=== PATIENT | male | born 1945 | race Caucasian/White ===

== ENCOUNTER → 2020-10-31 09:26 | Outpatient (CLI) | payer MEDICARE, MEDICAID, SELFPAY ==
[2020-10-31 09:50] LABS: Basophils # 0.1 K/mm3 (0-0.2); Basophils % 0.7 % (0.1-2.0); Eosinophils # 1.1 K/mm3 (0.0-0.4); Eosinophils % 10.4 % (0.1-12.0); Hematocrit 41.5 % (42.0-52.0); Hemoglobin 13.1 g/dL (14.1-18.0); Lymphocytes # 1.8 K/mm3 (0.7-4.5); Lymphocytes % 18.1 % (10-50); Mean Corpuscular HGB Conc 31.6 g/dL (31.8-35.4); Mean Corpuscular Hemoglobin 25.7 pg (27.0-31.2); Mean Corpuscular Volume 81.4 fl (80-94); Mean Platelet Volume 7.3 fl (7.4-10.4); Monocytes # 0.6 K/mm3 (0.1-1.0); Monocytes % 5.9 % (1.7-9.3); Neutrophils # 6.6 K/mm3 (1.8-7.8); Platelet Count 289 K/mm3 (142-424); Red Cell Distribution Width 16.3 % (11.5-17.5); White Blood Count 10.2 K/mm3 (4.8-10.8)
[2020-10-31 10:26] LABS: Chloride 101 mmol/L (98-107); Potassium 4.7 mmoL/L (3.5-5.1); Sodium 142 mmol/L (136-145)
[2020-10-31 10:29] LABS: Anion Gap 12.7 mEq/L (5-15); Blood Urea Nitrogen 10 mg/dl (9-20); Calcium 9.7 mg/dl (8.4-10.2); Carbon Dioxide 33 mmol/L (22.0-30.0); Estimated Glomerular Filt Rate 94 ml/min (>60); GFR (African American) 114 ML/MIN (>60); Glucose 107 mg/dl (74-100)
== END ==
PROVIDERS: Visit Provider Urology
DX: I20.9 Angina pectoris, unspecified (principal); R94.30 Abnormal result of cardiovascular function study, unspecified; Z01.818 Encounter for other preprocedural examination; Z11.52 Encounter for screening for COVID-19
CPT/HCPCS: 36415; 80048; 85025; U0003

== ENCOUNTER 2020-11-01 08:13 | Day surgery (SDC) | payer MEDICARE, MEDICAID, SELFPAY ==
[2020-11-01] VITALS (14 sets, daily range): BP systolic 116–194; BP diastolic 56–90; PULSE 63–86; RESP 16–18; TEMP 36.8; O2SAT 86–97; BMI 49.2
--- NOTE | 2020-11-01 | IR_ITS ---
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 COMPLICATIONS NONE Estimated Blood Loss: LESS THAN 10 ML TECHNIQUE One percent lidocaine was used to anesthetize the right groin. The right femoral artery was accessed via the Seldinger technique. A 5-[place] Island[place] sheath was placed in the right femoral artery. The JL-4 and JR-4 catheter was also used to perform left heart catheterization left ventriculogram and selective coronary angiogram. A JR4 catheter was used to selectively intubate the saphenous vein graft to the circumflex artery. At the end of the procedure the patient was transferred to the post-op holding area in stable condition for arterial sheath removal. ANGIOGRAPHIC RESULTS The left main artery Has a stent in the ostial and proximal segment which is widely patent free of in-stent restenosis with excellent distal transitioning. The left anterior descending artery Has a smooth ostial 20% stenosis with wide patency throughout the proximal and mid segment. The circumflex artery Is large and dominant. The first obtuse marginal artery has a proximal 80% stenosis and then proximally occluded. The remaining circumflex artery is widely patent and gives rise to a small distal obtuse marginal artery network The right coronary artery Small nondominant and patent The WATSON ventriculogram reveals Normal 65% The left ventricular end-diastolic pressure 15 mmHg Saphenous vein graft to the first obtuse marginal arteries widely patent IMPRESSION Widely patent coronaries as described above Normal ejection fraction PLAN 1. Continue medical management 2. Treatment of diastolic dysfunction Electronically signed by : Marc Montero, 11/01/2020 11:59:33
--- NOTE | 2020-11-01 | IR_ITS ---
? PROCEDURES Left heart catheterization Left?ventriculogram Selective coronary angiogram Catheter placed in left?subclavian artery Left?subclavian artery angiogram with nonselective engagement of the left internal mammary artery with angiography ? INDICATION Abnormal stress test, Angina pectoris, Aortic stenosis, Preoperative evaluation for impending bypass surgery ? Informed consent was obtained prior to the procedure. ? COMPLICATIONS NONE ? Estimated Blood Loss: LESS THAN 10 ML ? TECHNIQUE One percent?lidocaine used to anesthetize the right anterior aspect of the wrist. The right radial artery was accessed via the?Seldinger technique. A 6 Urdu sheath was placed in the right radial artery. 2.5 mg of verapamil, 800 mcg of nitroglycerin,?1mg?Lidocaine and 5000 U Heparin were given through the arterial sheath. The trap catheter was also used to perform left heart catheterization, left?ventriculogram and selective coronary angiogram. The same catheter was placed in the left?subclavian artery and angiography was performed in anticipation of possible bypass surgery. At the end of the procedure the sheath was removed good?hemostasis was achieved using?Traclet band, patient was transferred to the?postop holding area in stable condition. ? ANGIOGRAPHIC RESULTS The left main artery Normal The left anterior descending artery Has a proximal eccentric 50%?stenosis with mid vessel 10 to 20% stenoses The circumflex artery Is?nondominant and has a stent in the proximal segment which is widely patent free of in-stent?restenosis with excellent proximal distal transitioning. There are additional mid vessel 30% first obtuse marginal artery stenoses The right coronary artery Is a dominant vessel and has diffuse vascular?ectasia throughout its entire course. Proximally there are 30 and 40%?stenoses with mid vessel 30 to 40% stenoses. The?WATSON?ventriculogram reveals Preserved at 60% The left ventricular end-diastolic pressure 20 mmHg A 60 mm?transaortic valve peak to peak gradient is identified The left?subclavian artery is widely patent with a widely patent left internal mammary artery ? IMPRESSION Moderate proximal LAD disease as described above 60 mm?transaortic valve gradient suggestive of severe aortic stenosis Patent left?subclavian artery and left internal mammary artery ? PLAN 1. Recommend JARRED to better evaluate the aortic valve and to assess for aortic regurgitation 2. Surgical evaluation to consider either?TAVR for the aortic valve or possible open repair with possible ODONNELL graft into the LAD 3. Referral to [facility] 4. Risk factor modification ? Electronically signed by :?GARY 11/02/2020 13:17:27 GLORIA
--- NOTE | 2020-11-01 12:48 | CA_ITS ---
APPROVED REPORT EXAM: Comprehensive 2D, Doppler, and color-flow Echocardiogram [employer]: Rach Vega CRT Ht: 5 ft 3 in Wt: 278lbs BSA: 2.22 BP: 179/76 mmHg Indications: murmur, cp Procedure After obtaining informed consent, patient underwent transesophageal echo in the [facility]. Type of Sedation : Conscious Sedation Sedation was administered by Poncho Segovia C.R.N.A. Transesophageal probe was inserted and advanced into esophagus without difficulty by Dr. Rahul Campuzano. The JARRED was performed without complications. Throughout the procedure, the blood pressure, pulse oximetry, cardiac rhythm, and rate were monitored. The patient tolerated the procedure without adverse effects. Recovery from conscious sedation was uneventful and vital signs were stable. Left Ventricle Left ventricle is mildly dilated, preserved left ventricular systolic function, visually estimated ejection fraction 55% with no regional wall motion abnormality. Right Ventricle Right ventricle is mildly enlarged with normal contractility. Atria Left atrium is mildly enlarged. There is no thrombus in her left atrial appendage. Right atrium is mildly enlarged. Intra-atrial septum is intact, there is no flow across the interatrial septum, agitated saline contrast study fails to identify intracardiac shunt. Aortic Valve Aortic valve is thickened and calcified, the valve area by planimetry is 1.6 cm???, there is severe aortic insufficiency. Mitral Valve Mitral valve is minimally thickened, there is mild mitral regurgitation. Tricuspid Valve Tricuspid valve grossly normal, there is mild tricuspid regurgitation. Pulmonic Valve Pulmonic valve is grossly normal. Great Vessels Aortic root is normal size. Pericardium No significant pericardial effusion noted. Conclusion 1. Mild biatrial enlargement, mildly dilated left ventricle with preserved left ventricular systolic function, visually estimated ejection fraction 55% with no regional wall motion abnormality. 2. Abnormal aortic valve with mild aortic stenosis there is severe aortic insufficiency. 3. Mild mitral and tricuspid regurgitation. 4. Agitated saline contrast study fails to identify intracardiac shunt. 5. No significant pericardial effusion noted. Electronically signed by : Ariel Greene, 11/01/2020 16:00:21
--- NOTE | 2020-11-02 10:59 | HMH.ANESCL ---
[facility] Anesthesia Checklist - Structural Data Admitted From: Home Planned Operative Procedure/s: angella Consent for Planned Operative Procedure(s) Verified: Yes - Airway Assessment C-Spine Mobility Assessed: Yes TMJ Mobility Assessed: Yes Dentition: Edentulous - Neurological Assessment Level of Consciousness: Awake, Alert, Appropriate - Anesthesia Plan Anesthesia Risk discussed: Yes Anesthesia Plan: Patient unable to respond/answer ASA Class: IV Anesthesia Type: MAC [facility] History I have reviewed the patient's past medical history: Yes Medical History: Reports:: Coronary Artery Disease, Hyperlipidemia, Hypertension Denies:: Seizures *Have you ever received a pneumonia vaccine?: Yes *Have you received a flu vaccine this season?: Yes Anesthesia experience/problems:: none Other Surgeries: Yes: Cardiac Catheterization, Coronary Stent - *Social History Last grade of school completed: 7th or 8th Smoking Status: Former smoker Alcohol Intake: never Substance Use Type: denies use *Occupational Status:: retired Housing: house Household Members: spouse *Travel in the last 8 weeks: None Family Hx:: No significant family history
== END 2020-11-01 14:46 | disposition home or self-care (01) ==
PROVIDERS: Internal Medicine Cardiovascular Disease; PCP Family Medicine; Visit Provider Internal Medicine
DX: I25.10 Atherosclerotic heart disease of native coronary artery without angina pectoris (principal); R94.39 Abnormal result of other cardiovascular function study; I10 Essential (primary) hypertension; I35.0 Nonrheumatic aortic (valve) stenosis; Z79.899 Other long term (current) drug therapy; E78.5 Hyperlipidemia, unspecified; Z79.02 Long term (current) use of antithrombotics/antiplatelets
CPT/HCPCS: 36215; 93312; 93458; 99152; C1725; C1760; C1769; J1644; Q9967